=== PATIENT | male | born 1945 | race Caucasian/White ===

== ENCOUNTER 2016-09-13 19:40 | Inpatient (IN) ==
[2016-09-13] MEDS ORDERED: Aspirin 81 MG TAB.CHEW PO ONE (19:49)
[2016-09-13] MEDS ORDERED: *HR* Morphine 2 MG/ML SYRINGE IVP ONE ×2 (19:49→21:05)
[2016-09-13] MEDS ORDERED: Nitroglycerin 0.4 MG TAB.SUBL SL ONE (19:49)
[2016-09-13] MEDS ORDERED: Ondansetron 4 MG/2 ML VIAL IVP ONE (19:51)
--- NOTE | 2016-09-13 19:53 | Emergency Department Note ---
Disposition Clinical Impression: Chest pain Qualifiers: Chest pain type: chest pain due to myocardial ischemia Ischemic chest pain type : unstable angina pectoris Qualified Code(s): I20.0 - Unstable angina Disposition: Admitted As Inpatient Condition: Good Time of Disposition: 21:44 Chest Pain HPI - General Chief Complaint: ED Chest Pain Stated Complaint: Chest Pain Time Seen by Provider: 09/13/16 19:42 Vital Signs Reviewed: Yes Nursing Notes Reviewed: Yes - History of Present Illness Pt complaint: chest pain Onset (ago): hour(s) (1) Time: 18:53 Duration: constant Onset: other (just exited shower) Pain Location: substernal Severity scale (1-10): 7 Quality: heaviness Pain Radiation: none Improves with: nitroglycerin Worsens with: exertion Associated symptoms: Reports: dyspnea. Denies: nausea, vomiting, diaphoresis, syncope, palpitations Treatments prior to arrival chest pain: nitroglycerin, oxygen - Related Data Allergies Allergy/AdvReac Type Severity Reaction Status Date / Time Penicillins AdvReac Nausea Verified 09/13/16 19:41 All systems ED: reviewed and negative except as stated. Constitutional: Denies: fever, chills Eyes: Denies: eye pain ENT ED: Denies: ear pain Cardiovascular: Reports: as per HPI Respiratory: Reports: as per HPI Gastrointestinal: Denies: abdominal pain Genitourinary: Denies: dysuria Musculoskeletal: Denies: back pain Neurological: Denies: headache, weakness Endocrine: Denies: fatigue Hematological/Lymphatic: Denies: easy bleeding Allergic/Immunologic: Denies: facial swelling Chest Pain PMH - Social History Smoking Status: Never smoker Physical Exam - General Limitations: no limitations General appearance: in no apparent distress - Head Head exam: normocephalic - Eye Eye exam: Present: EOMI. Absent: conjunctival injection - ENT ENT exam: mucous membranes moist - Neck Neck exam: Present: full ROM - Chest Chest inspection: Present: normal inspection, symmetric chest wall rise - Respiratory Respiratory exam: Present: normal lung sounds bilaterally. Absent: respiratory distress - Cardiovascular Cardiovascular exam: Present: regular rate, tachycardia - Abdominal Exam Abdominal exam: Present: soft, Non-Tender - Extremities Exam Extremities exam: Present: normal inspection, full ROM, normal capillary refill - Back Exam Back exam: Present: full ROM - Neurological Exam Neurological exam: Present: alert, oriented X3 - Psychiatric Psychiatric exam: Present: normal affect, normal mood - Skin Skin exam: Present: warm, dry, intact, normal color. Absent: rash, cyanosis, diaphoresis Course Course Narrative: 70-year-old male diabetic who arrives via squad with complaints of chest pain. He describes it as pressure, radiating at 7 out of 10. It started approximately 1 hour prior to his arrival when he had just exited the shower and was preparing to go out for the evening. He mentions the pain was accompanied with some shortness of breath. He mentions shortness breath and chest pain had worsened when he walked around. He did have some relief with nitroglycerin at home. He denies any recent illness, diaphoresis, nausea, head or neck pain, radiation to his back, abdominal pain. Patient states he sees a shipping coordinator at [facility], Dr. Machado. Patient mentions a history of A. fib, multiple stents, the last catheterization one year ago. He currently taking Eliquis and Plavix. Patient seen and examined. He appears uncomfortable but was in no acute distress. He states his pain has improved after nitro at home. He slightly hypertensive and tachycardic otherwise vitals within normal limits. Analgesics ordered. ASA ordered. Workup initiated. - Reevaluation(s) Reevaluation #1: Nursing had noticed pt pulseless@20:35, irregular rhythm on monitor; chest compressions initiated and patient shocked. Pt responded to [id number]. Review of tele printouts likmelecio v.fib. Duration of unresponsiveness and compressions approximately 2-3 minutes. 2nd EKG performed, sinus tachy, no ST changes. Troponin still pending. Discussed with Dr. Coffey who was also bedside. Will await troponin and consult cardiology. Time: 20:44 - Consultations Consultation #1: Discussed pt with cinder block mason shipping coordinator Dr. Torrez, who advised discuss with interventionalist, due to chest pain, pt goes unresponsive consider STEMI regardless of EKG. Time: 21:15 Consultation #2: Discussed patient with interventional is Dr. Dover, who advised for Jewel Oliving Machine Operator. He also agreed for nitroglycerin drip. Discussed with Dr. Coffey. Time: 21:23 Consultation #3: Dr. Torrez had called back and advised for amiodarone bolus and drip. Time: 21:28 Vital Signs Temperature 98.6 F 09/13/16 19:41 Pulse Rate 108 09/13/16 19:41 Respiratory Rate 18 09/13/16 19:41 Blood Pressure 157/103 09/13/16 19:41 O2 Sat by Pulse Oximetry 99 09/13/16 19:41 Temperature 98.0 F 09/14/16 03:25 Pulse Rate 87 09/14/16 06:00 Respiratory Rate 24 09/14/16 06:00 Blood Pressure 134/82 09/14/16 06:00 O2 Sat by Pulse Oximetry 98 09/14/16 06:00 Oxygen Delivery Oxygen Delivery Non Rebreather Mask Chest Pain - MDM Narrative Medical decision making narrative: Patient is a 70-year-old male diabetic that arrives by squad with complaints of chest pain. He had some relief from nitroglycerin and morphine. During his workup he did have a 2-3 minute duration of unresponsiveness which appeared to be V. fib and required chest compressions and shock. Initial and repeat EKGs showed no ST changes, no V. tach or V. fib. Patient was discussed with shipping coordinator Dr. Torrez who advised to discuss patient with interventionalist. I did discuss with Dr. Dover interventionalists who agreed for catheter lab. Dr. Torrez had also advised for amiodarone. Patient was discussed with Dr. Coffey who also had face time with patient and agreed with workup and treatment plan. At time of my documentation, patient is in stable condition. Complains a 7 out of 10 chest pain. Morphine, nitroglycerin, amiodarone have been ordered. aWaiting Lab. - Lab Data Lab results reviewed: Yes I reviewed the patient's lab results. Result diagrams: 09/14/16 01:21 09/13/16 20:16 Lab Results 09/13/16 09/13/16 09/13/16 Range/Units 20:16 20:16 20:16 WBC 12.4 H (4.3-11.1) K/mcL RBC 4.68 (4.19-5.50) M/mcL Hgb 12.9 (12.9-16.9) g/dL Hct 38.7 (37.5-50.1) % MCV 82.7 L (83.0-100.0) fL MCH 27.6 L (28.0-33.3) pg MCHC 33.3 (31.6-35.5) g/dL RDW 14.8 H (11.5-14.5) % Plt Count 408 H (140-400) K/mcL MPV 9.3 L (9.4-12.4) fL Immature Gran % 0.3 (0-4) % Seg Neutrophils % 63.8 % Lymphocytes % 24.9 % Monocytes % 8.9 % Eosinophils % 1.4 % Basophils % 0.7 % Neutrophils # 7.9 (1.6-8.9) K/mcL Lymphocytes # 3.1 (0.6-4.6) K/mcL Monocytes # 1.1 (0.0-1.3) K/mcL Eosinophils # 0.2 (0.0-0.6) K/mcL Basophils # 0.1 (0.0-0.2) K/mcL PT (9.4-12.1) Seconds INR APTT (26.0-36.0) Seconds Sodium 139 (136-145) mEq/L Potassium 3.7 (3.5-4.5) mEq/L Chloride 104 (98-109) mEq/L Carbon Dioxide 27 (19-29) mEq/L BUN 14 (8-26) mg/dL Creatinine 0.92 (0.72-1.25) mg/dL Est GFR ( Amer) > 60 (> 60) Est GFR (Non-Af Amer) > 60 (> 60) BUN/Creatinine Ratio 15 (6-26) Glucose 165 H (70-99) mg/dL Calculated Osmolality 292 (280-300) Calcium 9.8 (8.6-10.8) mg/dL Troponin I 0.00 (0-0.03) ng/mL 09/13/16 Range/Units 20:16 WBC (4.3-11.1) K/mcL RBC (4.19-5.50) M/mcL Hgb (12.9-16.9) g/dL Hct (37.5-50.1) % MCV (83.0-100.0) fL MCH (28.0-33.3) pg MCHC (31.6-35.5) g/dL RDW (11.5-14.5) % Plt Count (140-400) K/mcL MPV (9.4-12.4) fL Immature Gran % (0-4) % Seg Neutrophils % % Lymphocytes % % Monocytes % % Eosinophils % % Basophils % % Neutrophils # (1.6-8.9) K/mcL Lymphocytes # (0.6-4.6) K/mcL Monocytes # (0.0-1.3) K/mcL Eosinophils # (0.0-0.6) K/mcL Basophils # (0.0-0.2) K/mcL PT 14.5 H (9.4-12.1) Seconds INR 1.3 APTT 37.5 H (26.0-36.0) Seconds Sodium (136-145) mEq/L Potassium (3.5-4.5) mEq/L Chloride (98-109) mEq/L Carbon Dioxide (19-29) mEq/L BUN (8-26) mg/dL Creatinine (0.72-1.25) mg/dL Est GFR ( Amer) (> 60) Est GFR (Non-Af Amer) (> 60) BUN/Creatinine Ratio (6-26) Glucose (70-99) mg/dL Calculated Osmolality (280-300) Calcium (8.6-10.8) mg/dL Troponin I (0-0.03) ng/mL - Radiology Data Radiology results reviewed: Yes I reviewed the patient's radiology results. - EKG Data EKG attestation: Yes I reviewed and interpreted this EKG. Heart Score - Score History: Moderately Suspicious EKG: Non Specific repolarisation Disturbance Age: Greater than 65 Risk Factors: Equal/Greater than 3 risk factor or history of atherosclerotic disease Troponin: Less than normal limit HEART Score Total: 6 Critical Care Time Critical Care Time: Yes Total Critical Care Time: 45 Attestation: Critical care performed: Time is exclusive of separately billable procedures. Time includes: direct patient care, patient reassessment, coordination of patient care, interpretation of data (laboratory data, radiology data, and respiratory data), review of patient's medical records, medical consultation and documentation of patient care. Procedures included in critical care time: Procedures excluded from critical care time: CPR Attestation Statement - Attestation Attestation: I, Christopher Coffey MD, personally evaluated this patient and discussed their management with the midlevel provicer, PAC/FLIPPING MACHINE OPERATOR. I reviewed the midlevel provider 's note and agree with the documented findings, medical decision making, and plan of care. 70-year-old male presents to the emergency department with a complaint of substernal chest pain which started approximately 1 hour prior to arrival. Patient rated the pain about a 7 out of 10. No shortness of breath or diaphoresis. Patient has an extensive cardiac history and has multiple coronary artery stents. Patient rated the pain about a 7 out of 10. He states it was sharp initially. He took nitroglycerin with some relief. He continues to have dull pain. After arrival and evaluation here in the emergency department patient had a very brief episode of V. tach and then ventricular fibrillation and became unresponsive. CPR was initiated and patient was defibrillated times one. No response from the defibrillation. Compressions were continued and within about 1 minute the patient woke up and had return of pulse. He was alert and answering questions appropriately. He states the chest pain still feels about the same and is radiating to left arm now. He denies shortness of breath. Patient did not receive any epinephrine or other drugs during a cardiac arrest. On examination patient is a well-developed well-nourished elderly male in no acute distress. He is alert and oriented 3. There is no cyanosis or diaphoresis. Breath sounds are clear and equal bilaterally. Chest is nontender to palpation. Heart regular rate and rhythm. Abdomen is soft and nontender with normal bowel sounds. Initial EKG showed atrial fibrillation with some mild ST depressions. No ST elevation. Repeat EKG after the cardiac arrest showed a sinus rhythm. Still no ST elevation or acute changes. Labs reviewed. Initial troponin 0.00. Case was discussed with the shipping coordinator on-call, Dr. Torrez, he recommended calling interventionalists. Briquette Maker on-call, Dr. Dover, was consulted and after discussion was made to go ahead and call in the Jewel Oliving Machine Operator and take the patient for emergent cardiac catheter. Patient was started on amiodarone and also nitroglycerin infusion. He received aspirin, nitroglycerin , and morphine prior to the cardiac arrest.
[2016-09-13 20:29] LABS: Basophils # 0.1 K/mcL (0.0-0.2); Basophils % 0.7 %; Eosinophils # 0.2 K/mcL (0.0-0.6); Eosinophils % 1.4 %; Hematocrit 38.7 % (37.5-50.1); Hemoglobin 12.9 g/dL (12.9-16.9); Immature Granulocytes % 0.3 % (0-4); Lymphocytes # 3.1 K/mcL (0.6-4.6); Lymphocytes % 24.9 %; Mean Corpuscular HGB Conc 33.3 g/dL (31.6-35.5); Mean Corpuscular Hemoglobin 27.6 pg (28.0-33.3); Mean Corpuscular Volume 82.7 fL (83.0-100.0); Mean Platelet Volume 9.3 fL (9.4-12.4); Monocytes # 1.1 K/mcL (0.0-1.3); Monocytes % 8.9 %; Neutrophils # 7.9 K/mcL (1.6-8.9); Platelet Count 408 K/mcL (140-400); Red Blood Count 4.68 M/mcL (4.19-5.50); Red Cell Distribution Width 14.8 % (11.5-14.5); Segmented Neutrophils % 63.8 %
[2016-09-13 20:30] LABS: INR 1.3; Prothrombin Time 14.5 Seconds (9.4-12.1)
[2016-09-13 20:33] LABS: Activated Partial Thrombo Time 37.5 Seconds (26.0-36.0)
[2016-09-13 20:38] LABS: BUN/Creatinine Ratio 15 (6-26); Blood Urea Nitrogen 14 mg/dL (8-26); Calcium 9.8 mg/dL (8.6-10.8); Carbon Dioxide 27 mEq/L (19-29); Chloride 104 mEq/L (98-109); Glucose 165 mg/dL (70-99); Osmolality,Calculated 292 (280-300); Potassium 3.7 mEq/L (3.5-4.5); Sodium 139 mEq/L (136-145); eGFR For African Americans > 60 (> 60); eGFR For Non-African Americans > 60 (> 60)
--- NOTE | 2016-09-13 21:06 | Emergency Department Note ---
START Narrative - START START: Vineet 70-year-old male presents for chest pain. Patient was ventricular fibrillation on monitor. I went to the bedside to evaluate patient. He was unresponsive with no pulse. Code cart was pulled to bedside. Per RN he was talking and just moved from ER #10 to ER #11. Considered a witnessed arrest, CPR was initiated . Pads were placed and within 30 sec on compressions, he was defibrillated 200 J. No pulse and appeared to be asystole, CPR resumed. 1 mg epinephrine ordered but 30 seconds in, patient was responsive and grabbing at his chest. Pulses palpable. Fredis Guallpa DO EM Resident, PGY-2 <Fredis Guallpa - Last Filed: 09/13/16 21:02> Attestation Statement - Attestation Attestation: Please see additional notes from this visit. <Christopher Coffey - Last Filed: 09/13/16 22:28>
[2016-09-13] MEDS ORDERED: Amiodarone 150 MG in D5% in Water 100 ML IVPB ONE (21:28)
[2016-09-13] MEDS ORDERED: Nitroglycerin 25 MG/250 ML INFUS..BTL IVC SCH ×2 (21:30→23:45)
[2016-09-13] MEDS ORDERED: Amiodarone Premix 360 MG/200 ML BAG IVC ONE (21:31)
[2016-09-13] MEDS ORDERED: Amiodarone Premix 150 MG/100 ML BAG IVPB ONE (21:31)
[2016-09-13] MEDS ORDERED: Nitroglycerin 1,000 MCG/10 ML VIAL IV ONE (22:03)
[2016-09-13] MEDS ORDERED: *HR* Heparin 10,000 UNIT/10 ML VIAL ONE (22:03)
[2016-09-13] MEDS ORDERED: Verapamil 5 MG/2 ML VIAL ONE (22:03)
[2016-09-13] MEDS ORDERED: 0.9 % Sodium Chloride 1,000 ML ONE ×2 (22:03→22:06)
[2016-09-13] MEDS ORDERED: Heparin 1,000 UNITS/500 mL NS 500 ML ONE (22:03)
--- NOTE | 2016-09-13 22:25 | Cardiology Consult Note ---
Date of Encounter: 09/13/16 Time of Encounter: 22:30 Assessment and Plan (1) Ventricular arrhythmia Current Visit: Yes Status: Acute Ventricular arrhythmia requiring CPR and defibrillation. Amiodarone started. (2) Chest pain Current Visit: Yes Status: Acute Presents with unstable angina and subsequent syncopal episode attributed to ventricular arrhythmia. Cardiac catheterization planned Qualifiers: Chest pain type: chest pain due to myocardial ischemia Ischemic chest pain type: unstable angina pectoris Qualified Code(s): I20.0 - Unstable angina Discussion w patient/family: The assessment and plan as outlined above was discussed with the patient and/or family members who expressed understanding and agreement. All questions were answered. Thank you for involving us in the care of your patient. Please call with any questions. History of Present Illness Consult date: 09/13/16 Consult reason: Chest pain Chief complaint: Chest pain History of present illness: Mr. Marx is a 70 year old male who arrives via squad with complaints of chest pain. He describes it as pressure, radiating at 7 out of 10. It started approximately 1 hour prior to his arrival when he had just exited the shower and was preparing to go out for the evening. He did describe having some discomfort yesterday. He did have some relief with nitroglycerin at home. He denies any recent illness, diaphoresis, nausea, head or neck pain, radiation to his back, abdominal pain. Patient states he sees a cell plasterer at [facility], Dr. Machado. Patient mentions a history of A. fib, multiple stents, the last catheterization one year ago. He currently taking Eliquis and Plavix. In the emergency room he had a syncopal episode which was attributed to ventricular arrhythmia. He did receive CPR and was cardioverted. He currently notes some soreness from the defibrillation pads but the presenting chest discomfort has resolved. Last Alquist dose was this morning. Past Med Surg Social Fam HX - Past Medical History Medical history: atrial fibrillation, cancer, coronary artery disease, diabetes , hyperlipidemia, hypertension Psychiatric history: no psych history - Past Surgical History Surgical History: angioplasty/stent - Social History Smoking Status: Never smoker Smokeless Tobacco Status: No Alcohol use: rarely Drug use: none Medications and Allergies Allergies Penicillins Adverse Reaction (Verified 09/13/16 19:41) Nausea All Systems Review: A 10-system review of systems was performed and is negative for pertinent findings except as documented above in the HPI. Physical Examination Vital Signs, Last 4 Hours Pulse Resp BP Pulse Ox 09/13/16 22:11 105 20 143/90 91 09/13/16 21:56 91 09/13/16 21:54 86 09/13/16 21:50 108 139/89 General: Conversant, No Apparent Distress HEENT: Atraumatic, Normocephaly, Mucus Membranes Moist Neck: No JVD, Normal carotid pulses Cardiac: Reg Rate and Rhythm, Normal S1 and S2, No Murmur Lungs: Normal Breath Sounds, No Wheeze, Rales, Rhonchi Neuro: Alert and responsive, No focal deficits noted Abdomen: Soft, Non-Tender Skin: No rashes noted on visualized skin Musculoskeletal: No Chest Wall Tenderness Extremities: No Clubbing, No Cyanosis, No Edema, Normal Pulses Results 09/13/16 20:16 09/13/16 20:16 - EKG Interpretation EKG results cardiology: other (Atrial fibrillation) Consult Discharge Plan - Plan Referrals: Bonifacio Oconnor Jr, MD [Primary Care Provider] -
--- NOTE | 2016-09-13 22:32 | Pre-Sedation Evaluation ---
Pre-sedation evaluation - Pre-sedation checklist Date of procedure: 09/13/16 Procedure: Cardiac catheterization Recent Vitals: Last Vital Signs Temp 98.6 F 09/13/16 19:41 Pulse 105 09/13/16 22:11 Resp 20 09/13/16 22:15 BP 143/90 09/13/16 22:15 Pulse Ox 91 09/13/16 22:11 H&P (including ROS) documented in medical record: Yes Previous reaction to sedatives/anesthetics: No Dietary Status: No solid food in preceding 4 hrs and no liquid in preceding 2 hrs Airway Assessment: Patient can open mouth completely, TMJ function normal Dentition: No loose teeth or bridges Possible difficult airway: No ASA Classification *see protocol: CLASS II-Mild systemic disease Plan of Care: Pt appropriate candidate for procedure/moderate/conscious sedation
[2016-09-13 22:56] LABS: ABG Base Excess 0.7 mEq/L (-2.0 to 3.0); ABG HCO3 24.5 mEQ/L (21-27); ABG Oxygen Saturation 82 % (95-98); ABG PCO2 36 mmHg (35-45); ABG PH 7.44 pH Units (7.32-7.45); ABG TCO2 25.6 mEq/L (20-26)
[2016-09-13 22:57] LABS: ABG PO2 44 mmHg (85-104); Blood Gas FiO2 100 %
[2016-09-13] MEDS ORDERED: Heparin 25,000 UNIT/500 ML D5W 25,000 UNIT/500 ML MLS IVC ONE (23:15)
--- NOTE | 2016-09-13 23:23 | Invasive Diagnostic Lab Proc ---
Name: Vineet Marx Date of Study: 09/13/2016 Date: 1945 Ht: 75.2in Medical Record#: [id number] Age: 70 Wt: 216.05lb Gender: Male BSA: 2.27 Order #: [id number] BMI: 26.86 Physicians Procedure Physician: Brian Dover MD Referring MD: Referring MD: Staff Name Position Time In Sites, Camelia RT (R) Monitor 10:37 PM Leeanne Cheng RN Assembler Chassis 10:37 PM Sherrell Cho RT Scrub 10:37 PM Indications Indication Unstable Angina Cardiac arrest Procedures Performed Procedure L HRT ARTERY/VENTRICLE ANGIO Pre-Procedure Checklist Informed consent is complete signed and on chart. H&P is on chart. ID band is on and ID verified with patient. Patient NPO for procedure The procedure was described for the patient and questions were answered. Blood Pressure: 147/92 ECG is on chart. Rhythm: Atrial Fibrillation Plan of Care Patient will tolerate the procedure without complications. Adequate level of comfort will be maintained. Hemodynamics will remain stable Patient will recover from procedure without complications. Respiratory function will be maintained. Cardiac rhythm will remain stable. Patient temperature will be maintained. Patient and/or family have verbalized understanding of the procedure. Patient Education Chief Complaint/Reason for Test: Cardiac Cath Developmental Category: Geriatric (65+ years) Developmentally Appropriate for Age: Yes Learning Barriers: None Education Needs: Plan of Care Education Method: Verbal Information Taught: Cardiac Cath Educational Evaluation: Able to repeat information Intravenous Access Time IV Size Location DC'd Fluid/Drip Rate Units RN 10:41 PM 18g 1 1/4" Patent On Arrival Lt Antecubital No 0.9NaCl Leeanne Cheng RN 20g 1 1/4" Patent On Arrival Lt Arm Amiodarone Leeanne Cheng RN Allergies Penicillin Vital Signs Time BP (mmHg) HR (bpm) O2 Sat. RR (bpm) LOC 10:39 PM / % 4 = Oriented but drowsy 10:39 PM / % 4 = Oriented but drowsy 10:27 PM 155 / 94 105 89 % 16 10:32 PM 151 / 90 110 83 % 21 10:37 PM 147 / 92 110 82 % 22 10:42 PM 143 / 87 109 80 % 22 10:47 PM 118 / 69 148 81 % 21 10:52 PM 128 / 73 106 80 % 22 10:57 PM 136 / 85 107 83 % 21 11:02 PM 139 / 87 106 84 % 22 10:55 PM / % 4 = Oriented but drowsy Procedural Medications Time Medication Dose Units Method Given By 10:39 PM Oxygen 15 L/min Oxy Mask Leeanne Cheng RN 10:43 PM Lidocaine 2% 1 ml Subcutaneous Brian Dover MD 10:44 PM Heparin 4000 units Nitroglycerin 200 mcg Verapamil 2.5 mg Intraarterial Brian Dover MD 10:44 PM Oxygen 15 L/min 100% non rebreather mask Leeanne Cheng RN ASA Classification: CLASS II- Mild systemic disease (i.e. well-controlled diabetes, hypertension, asthma, cigarette smoking) Chet Score Preprocedure Postprocedure Activity 2- Moves 4 extremities sustained head lift Activity 2- Moves 4 extremities sustained head lift Circulation 2- SBP +/= 20 points of pre-anesthetic level Circulation 2- SBP +/= 20 points of pre-anesthetic level Consciousness 2- Awake and alert oriented x 3 Consciousness 2- Awake and alert oriented x 3 O2 Saturation 1- Needs O2 inhalation to maintain O2 saturation of 90% O2 Saturation 1- Needs O2 inhalation to maintain O2 saturation of 90% Respiratory 2- Able to deep breathe and cough well Respiratory 2- Able to deep breathe and cough well Total Score 9 Total Score 9 Contrast Agent: Isovue Diagnostic Contrast: 61 ml Total Contrast: 61 ml Fluoro Dose: 563 mGy Procedure Log Time Note Enter By 10:25 PM Camelia Singh RT (R) Position: Monitor Time in: 22:25 tsites 10:25 PM Leeanne Cheng RN Position: Assembler Chassis Time in: 22:25 tsites 10:25 PM Sherrell Cho RT Position: Scrub Time in: 22:25 tsites 10:25 PM Pt arrived to labeling specialist 2 at 22:25 tsites 10:26 PM CathStat 10:27 PM Vitals capture started with the following parameters, Patient=Adult, Interval=5 min, Initial Cehqgsmb=453 mmHg, Deflation Rate=5 mmHg, Cuff placed on Left Arm 10:27 PM Physician arrived 22:27 tsites 10:27 PM Meet and greet completed tsites 10:27 PM Sign in performed according to hospital policy. tsites 10:27 PM Procedure start 22:27 tsites 10:27 PM ON=008 bpm, DLKY=511/94 mmhg, SpO2=89 %, Resp=16 B/min 10:32 PM JS=187 bpm, GFDD=553/90 mmhg, SpO2=83 %, Resp=21 B/min 10:34 PM Recorded ECG: QJ=172 Condition=Condition 1 10:35 PM Pressure channel 1 zeroed. 10:37 PM PH=550 bpm, VBHH=672/92 mmhg, SpO2=82.0 %, Resp=22 B/min 10:38 PM Patient charges- Angio tray pack, Navilyst 3mm J, Pulse Oximetry and ACIST tubing and transducer tsites 10:38 PM Hair removed from procedure site in holding area using clippers. Right wrist and groin prepped with Chloraprep by Camelia Singh (R), safety strap applied then patient was draped. Skin intact. tsites 10:39 PM Time: 22:39 Oxygen on at 15 L/min per Oxy Mask by Leeanne Cheng RN tsites 10:39 PM Time: 22:39 Patient comfortable and pain free: Yes tsites 10:39 PM Time: 22:39LOC: 4 = Oriented but drowsy tsites 10:40 PM Clinical Presentation: Unstable angina tsites 10:42 PM YB=595 bpm, CCXU=167/87 mmhg, SpO2=80 %, Resp=22 B/min 10:43 PM Time out performed according to hospital policy tsites 10:43 PM Time: 22:43 1 ml Lidocaine 2% to right radial Subcutaneous Given by Brian Dover MD tsites 10:43 PM Access obtained by percutaneous puncture. 6Fr 10cm Terumo Glidesheath sheath placed in right Radial artery. [id number] tsites 10:44 PM Time: 22:44 Patient given 4,000 units Heparin, 200 mcg Nitroglycerin, and 2.5 mg Verapamil Intraarterial by Brian Dover MD tsites 10:44 PM Time: 22:44 Oxygen on at 15 L/min per 100% non rebreather mask by Leeanne Cheng RN tsites 10:45 PM 5Fr TIG catheter inserted over the wire [facility] tsites 10:46 PM 0.035 260cm Navilyst 3mmJ wire [id number] tsites 10:47 PM BX=040 bpm, TXDQ=731/69 mmhg, SpO2=81 %, Resp=21 B/min 10:48 PM Recorded Pressure: LV, LA=186, Condition=Condition 1 (Left Ventricle) LV 93/19/43 10:48 PM Catheter selectively placed in left ventricle tsites 10:48 PM Bolus angiogram of left Ventricle complete: 6 ml/sec for a total of 18 mls tsites 10:49 PM Recorded Pressure: LV, Ao, JI=111, Condition=Condition 1 (Left Ventricle) LV 125/-6/-1, (Aorta) Ao 122/70/91 10:49 PM Recorded Pressure: Ao, BX=582, Condition=Condition 1 (Aorta) Ao 77/47/61 10:49 PM LCA angiography performed in multiple views. tsites 10:51 PM RCA angiography performed in multiple views. tsites 10:52 PM wire reinserted catheter removed tsites 10:52 PM GH=921 bpm, EGGF=401/73 mmhg, SpO2=80.0 %, Resp=22 B/min 10:52 PM 5Fr Pigtail catheter inserted over the wire DNC tsites 10:54 PM Time: 22:39 Patient comfortable and pain free: Yes tsites 10:55 PM Time: 22:39LOC: 4 = Oriented but drowsy tsites 10:55 PM Catheter selectively placed in left ventricle tsites 10:56 PM Recorded Pressure: LV, RN=712, Condition=Condition 1 (Left Ventricle) LV 132/7/26 10:56 PM Recorded Pressure: LV, Ao, FD=801, Condition=Condition 1 (Left Ventricle) LV 131/10/11, (Aorta) Ao 129/69/99 10:56 PM Bolus angiogram of left Ventricle complete: 10 ml/sec for a total of 20 mls tsites 10:56 PM Catheter removed tsites 10:57 PM RC=709 bpm, HGXK=250/85 mmhg, SpO2=83.0 %, Resp=21 B/min 11:01 PM Physician reviewing films tsites 11:01 PM Coronary Dominance: right tsites 11:01 PM Lesion found in Mid RCA. Pre Stenosis: 100 Pre JAKUB Flow: tsites 11:02 PM Lesion found in Mid LAD. Pre Stenosis: 90 Pre JAKUB Flow: tsites 11:02 PM Lesion found in Distal LAD. Pre Stenosis: 80 Pre JAKUB Flow: tsites 11:02 PM Lesion found in 1st Marginal. Pre Stenosis: 70 Pre JAKUB Flow: tsites 11:02 PM FN=949 bpm, MXGM=263/87 mmhg, SpO2=84.0 %, Resp=22 B/min 11:02 PM Lesion found in 1st Diagonal. Pre Stenosis: 50 Pre JAKUB Flow: tsites 11:04 PM Mid/Distal Left Anterior Descending Coronary Artery and diagonal branches with 90% stenosis. If graft is supplying this area, 0 % stenosis tsites 11:04 PM Circumflex, Obtuse Marginal, Left Posterior Descending, and Left Posterolateral Coronary Arteries with 70 % stenosis. If graft is supplying this area, 0 % stenosis tsites 11:04 PM Right Coronary, Right Posterior Descending Arteries with Right Posterolateral and Acute Marginal branches with 100 % stenosis. If graft is supplying this area, 0 % stenosis tsites 11:04 PM Procedure completed at 23:04 tsites 11:05 PM Sign out completed: Radiation Dose 563 mGy Fluoro Time: 4.4 Isovue 370 - 500ml contrast 61 ml given by Brian Dover MD. Complications: NoneCardiac Rehab Consult needed: NoConfirmed administered medications: Yes tsites 11:05 PM Isovue 370 - 500ml,1 Bottle(s) used. tsites 11:06 PM Arterial sheath pulled, Vasc Band closure device used and was Successful S/N. tsites 11:06 PM 14 ml air in Vasc Band. tsites 11:06 PM Post ECG Atrial Fibrillation tsites 11:06 PM Post Blood Pressure 139/87 tsites 11:06 PM 23:06 Post Pulses Rt Radial 2+ tsites 11:06 PM Information taught Cardiac Cath and Vasc Band tsites 11:06 PM Education needs Procedure, Plan of Care, and Responsibilities of Patient in Care tsites 11:06 PM Learning barriers :None tsites 11:06 PM Education Methods Verbal tsites 11:07 PM Education evaluation Able to repeat information tsites 11:07 PM Site status No bleeding/hematoma - Rt Wrist as reported by Sherrell Cho RT at 23:07 tsites 11:10 PM Time: 22:55LOC: 4 = Oriented but drowsy tsites 11:10 PM Time: 22:54 Patient comfortable and pain free: Yes tsites 11:10 PM Report given to chad RIZVI Pt taken to ICU Room #7. 23:10 tsites 11:10 PM Delay to floor No tsites 11:10 PM Patient out of room: 23:10 tsites 11:11 PM Family placed in consult room. tsites Complications Complication None Hemodynamics Pressures Site Systolic/A Wave Diastolic/V Wave Mean LV 93 19 43 LV 125 -6 -1 AO 122 70 91 AO 77 47 61 LV 132 7 26 LV 131 10 11 AO 129 69 99 Post Procedure Information Blood Pressure: 139/87 mmHg Rhythm: Atrial Fibrillation Post procedural instructions were given Closure Device Time Device Success/Fail 09/13/2016 11:11:00 PM Mechanical Compression Site Checks Time Location Status Staff Sheath In? Note 11:07 PM Rt Wrist No bleeding/hematoma Sherrell Cho RT Pulses Time Site Pre-Procedure Post-Procedure Note 09/13/2016 10:42:00 PM Bilateral DP & PT 2+ Bilateral radial 2+ Rt Radial Normal plethysmography's Test 11:06:00 PM Rt Radial 2+ Updated by Camelia Singh RT (R) on 09/13/2016 11:17:57 PM Camelia Singh RT electronically signed on 09/13/2016 11:18:39 PM with status of Final
--- NOTE | 2016-09-13 23:28 | Procedure Note ---
Date of procedure: 09/13/16 Pre-op diagnosis: Unstable angina Post-op diagnosis: same Procedure: LM-normal, LAD-diffusely disease, 90% mid in-stent, 80% distal, D1-50% proximal , CX-diffusely diseased, OM1-70% mid, RCA diffusely diseased, 100% mid in-stent with behl-wf-kzkas collaterals, LVEF 30%. Recommend transfer to [place] tomorrow. Currently he is angina free. Heparin, nitroglycerin, amiodarone. Discontinue Eliquis. Anesthesia: IV sedation Surgeon: Brian Dover Estimated blood loss (cc): 10 Pathology: none sent Condition: stable Disposition: ICU
[2016-09-13] MEDS ORDERED: Heparin 25,000 UNIT/500 ML D5W 25,000 UNIT/500 ML MLS IVC SCH (23:45)
--- NOTE | 2016-09-14 00:11 | Invasive Diagnostic Lab ---
Name: Vineet Marx Date of Study: 09/13/2016 Date: 1945 Ht: 191.0 cm /75.2 in Medical Record#: [id number] Age: 70 Wt: 98. kg / 216.05 lb Account/Order#: [id number] Gender: Male BSA: 2.27 Order #: [id number] Fluoro Dose: 563 mGy BMI: 26.86 Procedure Physician: Brian Dover MD Referring MD: Referring MD: Procedures Performed: LEFT HEART CATH Indications: Unstable Angina, Cardiac arrest Impressions: There is severe three vessel coronary artery disease. LV- Lower limits of normal, EF30% Recommendations: Optimal medical therapy of patient's disease. Aggressive risk factor modification. Suggest patient have Elective coronary artery bypass surgery. History/Risk Factors: Diabetes Hypertension Dyslipidemia Procedure Access obtained in the right Radial artery by percutaneous puncture Complications: None Contrast: Isovue 61ml Closure Device: Mechanical Compression Hemodynamics: Pressures Site Systolic/ A Wave Diastolic/ V Wave End Diastolic/ Mean HR LV 93 19 43 126 LV 125 -6 -1 110 AO 122 70 91 104 AO 77 47 61 107 LV 132 7 26 108 LV 131 10 11 107 AO 129 69 99 110 LV Ventriculography Ejection Method: LV Gram Ejection Fraction: 30% Wall Motion: CASTILLO Anterobasal Severe Hypokinesis Anterolateral Severe Hypokinesis Apical: Severe Hypokinesis Inferoapical Severe Hypokinesis Inferobasal Severe Hypokinesis Coronary Dominance: right Lesion Findings/Interventions * Left Main Coronary Artery The LMCA is angiographically free of disease. * Left Anterior Descending There is a 90% in stent restenosis in the Mid LAD. There is a 80% stenosis in the Distal LAD. There is a 50% stenosis in the 1st Diagonal. * Circumflex There is a 70% stenosis in the 1st Marginal. * Right Coronary Artery There is a 100% in stent restenosis in the Mid RCA. Updated by Camelia Francisco RT (R) on 09/13/2016 11:19:25 PM Brian Dover MD electronically signed on 09/14/2016 12:01:14 AM with status of Final
[2016-09-14 01:34] LABS: Basophils # 0.1 K/mcL (0.0-0.2); Basophils % 0.3 %; Hematocrit 38.6 % (37.5-50.1); Hemoglobin 12.6 g/dL (12.9-16.9); Immature Granulocytes % 0.6 % (0-4); Lymphocytes # 1.3 K/mcL (0.6-4.6); Lymphocytes % 8.5 %; Mean Corpuscular HGB Conc 32.6 g/dL (31.6-35.5); Mean Corpuscular Hemoglobin 26.8 pg (28.0-33.3); Mean Corpuscular Volume 82.1 fL (83.0-100.0); Monocytes # 0.9 K/mcL (0.0-1.3); Neutrophils # 13.1 K/mcL (1.6-8.9); Platelet Count 441 K/mcL (140-400); Red Cell Distribution Width 14.7 % (11.5-14.5); Segmented Neutrophils % 84.6 %
[2016-09-14] MEDS: Amiodarone Premix 360 MG/200 ML BAG IVC SCH ×2 (04:24→16:27)
[2016-09-14] MEDS ORDERED: Insulin LISPRO 300 UNITS/3 ML VIAL SQ SCH (05:45)
[2016-09-14 06:50] LABS: BUN/Creatinine Ratio 16 (6-26); Blood Urea Nitrogen 15 mg/dL (8-26); Carbon Dioxide 26 mEq/L (19-29); Chloride 102 mEq/L (98-109); Glucose 280 mg/dL (70-99); Osmolality,Calculated 293 (280-300); Potassium 3.9 mEq/L (3.5-4.5); Sodium 136 mEq/L (136-145); eGFR For African Americans > 60 (> 60); eGFR For Non-African Americans > 60 (> 60)
[2016-09-14 07:53] LABS: Magnesium 1.2 mg/dL (1.6-2.6)
[2016-09-14] MEDS: Insulin LISPRO 300 UNITS/3 ML VIAL SQ SCH ×2 (08:02→12:12)
[2016-09-14] MEDS ORDERED: Aspirin 81 MG TAB.CHEW PO SCH (09:00)
[2016-09-14] MEDS ORDERED: Magnesium Sulfate 4 GM in D5% in Water 100 ML IVPB ONE (09:04)
[2016-09-14] MEDS ORDERED: Furosemide 40 MG/4 ML VIAL IVP ONE (09:26)
--- NOTE | 2016-09-14 09:48 | Pulmonology Consult Note ---
Date of Encounter: 09/14/16 Time of Encounter: 08:45 Assessment and Plan (1) Acute respiratory failure with hypoxia Current Visit: Yes Status: Acute Acute respiratory failure with hypoxia and this individual who has severe multivessel coronary artery disease with depressed ejection fraction is likely secondary to mild pulmonary edema. Pulmonary edema diagnosis is based upon physical examination findings as well as the chest radiograph which suggested mild pulmonary vascular prominence. For all intent and purposes at this time, acute respiratory failure has resolved. It is my understanding from discussion with the personal development coach last night that this patient is likely to require revascularization via open heart approach. Since the patient has a relationship with the cardiology service at [facility], the patient will eventually be transferred to [place] for a opinion regarding open heart surgery. I agree with the current provisions of care which include use of beta ruperto, amiodarone, heparin infusion and antiplatelet therapy. It is anticipated that as the patient's cardiovascular status improves, hypoxemia will completely resolve. Her graft management reviewed during multidisciplinary critical care rounds. Code(s): J96.01 - Acute respiratory failure with hypoxia SNOMED Code(s): 57440879, 626097086 History of Present Illness Consult date: 09/14/16 Chief complaint: Chest pain, Q coronary syndrome, hypoxemia History of present illness: This 70-year-old male underwent left heart catheterization yesterday which revealed multivessel coronary artery disease as well as depressed ejection fraction approximately 30% given presentation to the emergency room with acute coronary syndrome and sudden cardiac . Patient was successfully resuscitated from V. tach and was urgently taken to the catheter lab with the above noted results. Following catheterization, the patient was notably hypoxemic despite a high flow supplemental oxygen and per my recommendation was placed on BiPAP overnight. This morning, the patient has successfully transitioned off BiPAP to 3 L nasal cannula oxygen. Aside from mild anterior chest discomfort (CPR related likely), the patient has no other specific complaints. He currently denies chest pressure chest tightness heaviness, pleuritic chest pain, coughing or syncope. Aside from significant coronary artery disease history (multiple stent placements), patient also relates a history of paroxysmal atrial fibrillation ( Agata Ghazal for stroke prophylaxis). The patient's a lifelong nonsmoker and does not have any well defined pulmonary disease. Past Med Surg Social Fam HX - Past Medical History Medical history: atrial fibrillation, cancer, coronary artery disease, diabetes , hyperlipidemia, hypertension Psychiatric history: no psych history - Past Surgical History Surgical History: angioplasty/stent - Social History Smoking Status: Never smoker Smokeless Tobacco Status: No Alcohol use: rarely Drug use: none Medications and Allergies Allergies Penicillins Adverse Reaction (Verified 09/13/16 19:41) Nausea All Systems: A 10-system review of systems was performed and is negative for pertinent findings except as documented above in the HPI. - Cardiovascular Cardiovascular: as per HPI - Respiratory Respiratory: as per HPI Physical Examination Vital Signs: Vital Signs, Last 4 Hours Temp Pulse Resp BP Pulse Ox 09/14/16 09:17 92 20 136/69 94 09/14/16 08:26 74 09/14/16 08:00 96 20 139/82 09/14/16 07:00 98.1 F 92 24 146/80 94 09/14/16 06:00 87 24 134/82 98 General appearance: no acute distress, other (Awake and alert vitals reviewed.) Eyes: nonicteric Auscultation: bilateral: clear (Upper lung sounds), diminished breath sounds ( Faint bibasilar crackles nearly completely resolve with deep breathing.) Cardiovascular: regular rate and rhythm (Gallop) Gastrointestinal: normoactive bowel sounds, non-distended Extremities: no cyanosis Musculoskeletal: no deformities normal mental status, non-focal exam Results - Laboratory Findings CBC and BMP: 09/14/16 01:21 09/14/16 06:29 ABG ABG pH 7.44 pH Units (7.32-7.45) 09/13/16 22:46 ABG pCO2 36 mmHg (35-45) 09/13/16 22:46 ABG pO2 44 mmHg (85-104) L* 09/13/16 22:46 ABG O2 Saturation 82 % (95-98) L 09/13/16 22:46 PT/INR, D-dimer PT 14.5 Seconds (9.4-12.1) H 09/13/16 20:16 Abnormal lab findings: Abnormal lab results WBC 15.5 K/mcL (4.3-11.1) H 09/14/16 01:21 Hgb 12.6 g/dL (12.9-16.9) L 09/14/16 01:21 MCV 82.1 fL (83.0-100.0) L 09/14/16 01:21 MCH 26.8 pg (28.0-33.3) L 09/14/16 01:21 RDW 14.7 % (11.5-14.5) H 09/14/16 01:21 Plt Count 441 K/mcL (140-400) H 09/14/16 01:21 MPV 9.0 fL (9.4-12.4) L 09/14/16 01:21 Neutrophils # 13.1 K/mcL (1.6-8.9) H 09/14/16 01:21 PT 14.5 Seconds (9.4-12.1) H 09/13/16 20:16 APTT 61.5 Seconds (26.0-36.0) H D 09/14/16 06:29 ABG pO2 44 mmHg (85-104) L* 09/13/16 22:46 ABG O2 Saturation 82 % (95-98) L 09/13/16 22:46 Glucose 280 mg/dL (70-99) H 09/14/16 06:29 POC Glucose 196 (58-89) H 09/13/16 23:33 Magnesium 1.2 mg/dL (1.6-2.6) L 09/14/16 06:29 - Clinical Findings Intake & Output: Intake & Output 09/13/16 09/14/16 09/14/16 23:59 07:59 15:59 Intake Total 200 / 200 200 / 200 Output Total 200 / 200 Balance 0 / 0 200 / 200 Consult Discharge Plan - Plan Referrals: Bonifacio Oconnor Jr, MD [Primary Care Provider] -
[2016-09-14] MEDS: Magnesium Sulfate 2 GM in D5% in Water 100 ML IVPB SCH ×2 (10:47→12:11)
--- NOTE | 2016-09-14 12:18 | Cardiology Progress Note ---
Date of Encounter: 09/14/16 Time of Encounter: 10:00 Assessment and Plan (1) Ventricular arrhythmia Current Visit: Yes Status: Acute Per cardiology: -Ventricular arrhythmia requiring CPR and defibrillation. -Magnesium noted to be 1.2, replaced. -On beta ruperto, heparin drip and amiodarone drip. -Emergent LHC was performed. -NO ventricular fibrillation per telemetry. -Non-sustained runs of ventricular tachycardia noted per telemetry with longest lasting 11 beats.. -Will continue amiodarone drip. -4 gram magnesium was given. -Will continue to monitor. (2) Chest pain Current Visit: Yes Status: Acute Per cardiology: -Presents with unstable angina and subsequent syncopal episode attributed to ventricular arrhythmia. -LHC with LVEF 30%, 90% in stent restenosis in mid LAD, 80% stenosis distal LAD , 50% diagonal 1, 70% stenosis OM1, 100% in stent restenosis mid RCA -Denies current chest pain. -On heparin drip, nitro drip, beta ruperto, and asa. -Recommendations for CT surgery evaluation were given. Discussed with . 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 Transfer center called. -Will continue to monitor. Qualifiers: Chest pain type: chest pain due to myocardial ischemia Ischemic chest pain type: unstable angina pectoris Qualified Code(s): I20.0 - Unstable angina (3) CAD (coronary artery disease) Current Visit: Yes Status: Chronic Per cardiology: -KNown CAD with multiple stents previously. -LHC as above. -On asa, statin, beta ruperto, heparin drip, and nitro drip. -Unstable angina on admission, now chest pain free. -Atorvastatin increased to 80mg daily. (4) Atrial fibrillation Current Visit: Yes Status: Acute Per cardiology: -KNown atrial fibrillation. -ON eliquis at home, currently on heparin drip. -[id number] score 4 (age, HTN, DM, vascular disease). On heparin drip at this time. -ON beta ruperto with controlled HRs. -Recommend long-term anticoagulation pending evalution from CT surgery. Qualifiers: Atrial fibrillation type: chronic Qualified Code(s): I48.2 - Chronic atrial fibrillation Discussion w patient/family: The assessment and plan as outlined above was discussed with the patient and/or family members who expressed understanding and agreement. All questions were answered. Thank you for involving us in the care of your patient. Please call with any questions. Discussed and reviewed with . Subjective Principal diagnosis: ventricular fibrillation arrest Interval history: Patient presented to ER for chest pain. While being evaluated in ER, patient went into ventricular fibrillation and arrested. Patient underwent defibrillation and compressions. Patient was take to phlebotomist medical lab assistant for emergent LHC. Patient was recommended to be evualted by CT surgery for possible CABG. Upon my assessment, patient is awake, alert and oriented. Patient on nasal cannula with SpO2 93%. Patient denies chest pain, however admits to being sore from defibrillation and compressions. Patient states he is just "glad to be among the living." Of note, 's cardiology consult note, should be used at cardiology history anf physical. Objective Vital Signs, Last 4 Hours Pulse Resp BP Pulse Ox 09/14/16 10:33 91 20 134/79 92 09/14/16 09:17 92 20 136/69 94 09/14/16 08:26 74 General: Conversant, No Apparent Distress HEENT: Atraumatic, Normocephaly, Mucus Membranes Moist Neck: No JVD, Normal carotid pulses Cardiac: Reg Rate and Rhythm, Normal S1 and S2, No Murmur Lungs: Normal Breath Sounds, No Wheeze, Rales, Rhonchi Neuro: Alert and responsive, No focal deficits noted Abdomen: Soft, Non-Tender Skin: No rashes noted on visualized skin Musculoskeletal: No Chest Wall Tenderness Extremities: No Clubbing, No Cyanosis, No Edema, Normal Pulses Results 09/14/16 01:21 09/14/16 06:29 Lab Results Impressions Chest X-Ray 09/13/16 19:42 IMPRESSION: No focal consolidation to suggest pneumonia. Tiny nodular density left lateral lung base, indeterminate. Upright two view chest may be more helpful in this regard. D/ / Dano Conrad / Dano Conrad Interpreting Provider: Dano Conrad Chest X-Ray 09/13/16 21:24 IMPRESSION: Findings raise question of developing pulmonary edema. D/ / Dano Conrad / Dano Conrad Interpreting Provider: Dano Conrad Active Medications Aspirin (Aspirin) 81 mg PO DAILY GABINO Stop: 03/16/17 09:01 Last Admin: 09/14/16 08:03 Dose: 81 mg Atorvastatin Calcium (Lipitor) 80 mg PO HS GABINO Stop: 03/16/17 21:01 Carvedilol (Coreg) 6.25 mg PO BIDWM GABINO PRN Reason: Protocol Stop: 03/16/17 08:01 Last Admin: 09/14/16 08:03 Dose: 6.25 mg Nitroglycerin (Nitroglycerin) 25 mg in 250 mls @ 3 mls/hr IVC .Q24H GABINO PRN Reason: 5 MCG/MIN Stop: 03/15/17 21:31 Last Infusion: 09/14/16 10:52 Dose: 0 mcg/min, 0 mls/hr Nitroglycerin (Nitroglycerin) 25 mg in 250 mls @ 12 mls/hr IVC .[id number] GABINO; 20 MCG/MIN PRN Reason: Protocol Stop: 03/15/17 23:46 Last Admin: 09/14/16 08:51 Dose: Not Given Heparin Sodium/Dextrose (Heparin 25,000 Unit/500 Ml D5w) 25,000 unit in 500 mls @ 23.514 mls/hr IVC .[id number] GABINO; 12 UNIT/KG/HR PRN Reason: Protocol Stop: 03/15/17 23:46 Last Titration: 09/14/16 08:56 Dose: 11.99 unit/kg/hr, 23.514 mls/hr Amiodarone HCl/Dextrose (Amiodarone Drip Premix 360mg/200ml) 360 mg in 200 mls @ 16.667 mls/hr IVC CONT GABINO PRN Reason: 0.5 MG/MIN Stop: 03/16/17 03:46 Last Admin: 09/14/16 04:24 Dose: 0.5 mg/min, 16.667 mls/hr Insulin Human Lispro (Humalog) 0 units SQ HS [facility] PRN Reason: Protocol Stop: 03/16/17 05:46 Last Admin: 09/14/16 08:51 Dose: Not Given Insulin Human Lispro (Humalog) 0 units SQ TIDWM GABINO PRN Reason: Protocol Stop: 03/16/17 08:01 Last Admin: 09/14/16 12:12 Dose: 14 units Lisinopril (Zestril) 5 mg PO DAILY GABINO PRN Reason: Protocol Stop: 03/16/17 09:01 Last Admin: 09/14/16 08:03 Dose: 5 mg Laboratory Tests 09/13/16 09/14/16 09/14/16 20:16 01:21 06:29 WBC 15.5 H Hgb 12.6 L Plt Count 441 H Potassium 3.9 Creatinine 0.95 Magnesium 1.2 L Troponin I 0.00 - Imaging and Cardiology Chest Xray: report reviewed Cardiac cath: report reviewed - EKG Interpretation EKG results cardiology: personally reviewed (Initial ECG with atrial fibrilaltion, HR 100.), other (Telemetry reviewed with average HR 91, atrial fibrillation. PVCs, couplet, and runs of non-sustained ventricular tachycardia noted, longest lasting 11 beats.) - VTE Reasons for not Prescribing Prophylaxis: Not indicated-Anticoagulated or INR therapeutic Consult Discharge Plan - Plan Referrals: Bonifacio Oconnor Jr, MD [Primary Care Provider] -
--- NOTE | 2016-09-14 14:25 | Discharge Summary ---
Date of Encounter: 09/14/16 Time of Encounter: 14:23 - Discharge Diagnosis (1) Ventricular arrhythmia Priority: Primary Status: Acute Comments: Ventricular arrest, witnessed in ER. Emergent LHC. (2) Chest pain Priority: Secondary Status: Acute Comments: Chest pain on arrival to ER. Denies current chest pain Qualifiers: Chest pain type: chest pain due to myocardial ischemia Ischemic chest pain type: unstable angina pectoris Qualified Code(s): I20.0 - Unstable angina (3) CAD (coronary artery disease) Priority: Secondary Status: Chronic Comments: Known CAD. (4) Atrial fibrillation Priority: Secondary Status: Acute Comments: Known atrial fibrillation. Qualifiers: Atrial fibrillation type: chronic Qualified Code(s): I48.2 - Chronic atrial fibrillation - Discharge Medications Home Medications: Amlodipine Besylate 10 mg PO DAILY 09/14/16 [History] Apixaban [Eliquis] 5 mg PO BID 09/14/16 [History] Atorvastatin [Lipitor] 40 mg PO HS 09/14/16 [History] Clopidogrel [Plavix] 75 mg PO DAILY 09/14/16 [History] Dorzolamide/Timolol [Cosopt] 1 drop OP TID 09/14/16 [History] Exenatide [Byetta] 10 mcg SQ QWEEK 09/14/16 [History] Insulin Glargine,Hum.rec.anlog [Basaglar Kwikpen U-100] 34 unit SQ DAILY [History] Lisinopril [Zestril] 40 mg PO DAILY 09/14/16 [History] Metoprolol Succinate 100 mg PO DAILY 09/14/16 [History] Nitroglycerin [Nitrolingual] 1 spray TL DAILY PRN 09/14/16 [History] hydroCHLOROthiazide [Hydrochlorothiazide] 12.5 mg PO DAILY 09/14/16 [History] Allergies/Adverse Reactions: Allergies Penicillins Adverse Reaction (Verified 09/13/16 19:41) Nausea Procedures/tests Complete & Pending: Procedures Performed prior 72 hours Category Date Time Status CL Cardiac Catheterization [CL] Routine Form Tamping Machine Operator 09/13/16 21:58 Completed Date of admission: 09/13/16 21:33 Primary care physician: Bonifacio Oconnor Jr, MD Consults: 09/14/16 07:39 Consult to Pulmonology [CONS] Routine Consulting Provider: [facility] Reason for Consult: Hypoxemia Call Completed: No 09/14/16 12:47 Consult to Cardiothoracic Surgery [CONS] Routine Consulting Provider: Cardiothoracic Surgery [facility] Reason for Consult: evaluate for CABG Call Completed: Yes 09/14/16 12:48 Consult to Cardiac Rehabilitation-Phase1 [CONS] Routine Comment: Reason for Consult: CAD, possible CABG Call Completed: No Discharging clinician: Amberly Galo Anticipated date of discharge: 09/14/16 - Patient Status Disposition: Transfer Other Condition: Fair Functional capacity at discharge: independent ambulation Overall status at discharge: patient is not back to baseline - Discharge Instructions Follow Up With: Bonifacio Oconnor Jr, MD [Primary Care Provider] - - Diet and Activity Activity: other Diet: low fat, low cholesterol, low salt diet - Hospital Course Hospital course: Mr. Marx is a 70 year old male who presented to ER for evaluation of chest pain. Patient had witnessed cardiac arrest in ER. Patient was defibrillated and underwent CPR. Patient was taken emergently to microbiology laboratory manager. Patient was noted to have multiple blockages and was recommended for CABG evaluation. 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 [place] transfer center has been notified of need for transfer. Patient will be transferred from [facility] to [place]. - Time Spent with Patient Total time spent providing and/or coordinating discharge services: Less than 30 minutes Physical Examination Vital Signs, Last 4 Hours Temp Pulse Resp BP Pulse Ox 09/14/16 14:07 100 16 153/81 93 09/14/16 13:00 100 20 100/77 94 09/14/16 12:08 98.3 F 103 12 140/92 94 09/14/16 10:33 91 20 134/79 92 General: Conversant, No Apparent Distress HEENT: Atraumatic, Normocephaly, Mucus Membranes Moist Neck: No JVD, Normal carotid pulses Cardiac: Reg Rate and Rhythm, Normal S1 and S2, No Murmur Lungs: Normal Breath Sounds, No Wheeze, Rales, Rhonchi Neuro: Alert and responsive, No focal deficits noted Abdomen: Soft, Non-Tender Skin: No rashes noted on visualized skin Musculoskeletal: No Chest Wall Tenderness Extremities: No Clubbing, No Cyanosis, No Edema, Normal Pulses - VTE Reasons for not Prescribing Prophylaxis: Not indicated-Anticoagulated or INR therapeutic
[2016-09-14 16:22] VITALS: BP 146/81
--- NOTE | 2016-09-15 13:55 | Electrocardiograph Report ---
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
--- NOTE | 2016-09-15 13:56 | Electrocardiograph Report ---
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
== END 2016-09-14 16:55 | disposition other institution (70) | DRG 286 ==
LOC: EMEROO 19:40 → ICNU 21:33
PROVIDERS: ADMIT Internal Medicine Interventional Cardiology; ATTEND Internal Medicine Interventional Cardiology